=== PATIENT | female | born 1975 | race Caucasian/White ===

== ENCOUNTER 2022-07-11 17:10 | Emergency (ER) | payer BC ==
[~2022-07-11] VITALS: Ht 165.1 cm; Wt 74.8 kg
[~2022-07-11 17:10] MED LIST: FLUNISOLIDE25 ML INH; FLUT.05NI INH; METCAR500 PO; MONT10T PO; OXYACE5T PO; PROG100; SPIR50 PO
[2022-07-11 18:18] LABS: BASOPHILS ABSOLUTE AUTO 0.06 K/mm3 (0.00-0.23); BASOPHILS PERCENT AUTO 1 % (0-2); EOSINOPHILS ABSOLUTE AUTO 0.08 K/mm3 (0.00-0.68); EOSINOPHILS PERCENT AUTO 1 % (0-6); Hematocrit 41.3 % (33.0-51.0); Hemoglobin 13.5 g/dL (11.5-16.0); IMMATURE GRAN ABSOLUTE AUTO 0.04 K/mm3 (0.00-0.10); IMMATURE GRAN PERCENT AUTO 0 % (0-1); LYMPHOCYTES ABSOLUTE AUTO 2.46 K/mm3 (0.84-5.20); LYMPHOCYTES PERCENT AUTO 21 % (21-46); MONOCYTES ABSOLUTE AUTO 0.66 K/mm3 (0.16-1.47); MONOCYTES PERCENT AUTO 6 % (4-13); Mean Corpuscular HGB 28.5 pg (26.0-34.0); Mean Corpuscular HGB Conc 32.7 g/dL (31.5-36.5); Mean Corpuscular Volume 87 fL (80-100); Mean Platelet Volume 10.3 fL (9.1-12.4); NEUTROPHILS ABSOLUTE AUTO 8.51 K/mm3 (1.96-9.15); NEUTROPHILS PERCENT AUTO 72 % (41-73); Platelet Count 325 K/mm3 (150-400); RDW Coefficient Variation 13.6 % (11.7-14.2); RDW Standard Deviation 43.8 fL (35.1-46.3); Red Blood Cell Count 4.74 M/mm3 (3.80-5.20); White Blood Cell Count 11.81 K/mm3 (4.00-11.30)
[2022-07-11 18:25] LABS: Albumin, Blood 3.9 g/dL (3.4-5.0); Albumin/Globulin Ratio 1.2 (0.8-1.8); Bilirubin, Total 0.2 mg/dL (0.1-1.0); Bun/Creatinine Ratio 32.4 (12.0-20.0); Calcium, Blood 9.4 mg/dL (8.5-10.1); Creatinine, Blood 0.56 mg/dL (0.40-1.00); Globulin, Blood 3.2 g/dL (2.2-4.0); Potassium, Blood 3.9 mmol/L (3.5-5.5); Total Protein, Blood 7.1 g/dL (6.4-8.2)
[2022-07-11 19:58] LABS: Source, Urine Clean Catch
[2022-07-11 20:02] LABS: Appearance, Urine Hazy (Clear); Bilirubin, Urine Neg (Neg); Blood, Urine 1+ (Neg); Color, Urine Yellow (P-Yellow); Glucose Qualitative, Urine Neg (Neg); Ketones, Urine 3+ (Neg); Leukocyte Esterase, Urine Neg (Neg); Nitrite, Urine Neg (Neg); Protein, Urine Neg (Neg); Urobilinogen, Urine NORM (Normal)
[2022-07-11 20:12] LABS: Bacteria Few /hpf; Red Blood Cells, Urine 0-2 /hpf (0-2); Squamous Epithelial Cells Many /hpf (Few); White Blood Cells, Urine 0-2 /hpf (0-5)
[2022-07-11] MEDS ORDERED: CARAFATE1 GM/10 M1 PO (21:01)
[2022-07-11] MEDS ORDERED: OMEP20ER PO (21:01)
== END 2022-07-11 21:11 | disposition home or self-care (01) ==
LOC: ER 17:10
PROVIDERS: Emergency Medicine
DX: K27.9 Peptic ulcer, site unspecified, unspecified as acute or chronic, without hemorrhage or perforation (principal); K29.70 Gastritis, unspecified, without bleeding
CPT/HCPCS: 36415; 74177; 80053; 81001; 83690; 85025; A9270; J2405; J3010; Q9967

== ENCOUNTER 2022-07-19 16:14 | Emergency (ER) | payer BC ==
[~2022-07-19] VITALS: Ht 165.1 cm; Wt 72.6 kg
[~2022-07-19 16:14] MED LIST changes: +CARAFATE1 GM/10 M1 PO; +OMEP20ER PO
[2022-07-19 16:33] LABS: BASOPHILS ABSOLUTE AUTO 0.03 K/mm3 (0.00-0.23); BASOPHILS PERCENT AUTO 1 % (0-2); EOSINOPHILS ABSOLUTE AUTO 0.03 K/mm3 (0.00-0.68); EOSINOPHILS PERCENT AUTO 1 % (0-6); Hemoglobin 13.9 g/dL (11.5-16.0); IMMATURE GRAN ABSOLUTE AUTO 0.01 K/mm3 (0.00-0.10); IMMATURE GRAN PERCENT AUTO 0 % (0-1); LYMPHOCYTES ABSOLUTE AUTO 1.78 K/mm3 (0.84-5.20); LYMPHOCYTES PERCENT AUTO 30 % (21-46); MONOCYTES ABSOLUTE AUTO 0.48 K/mm3 (0.16-1.47); MONOCYTES PERCENT AUTO 8 % (4-13); Mean Corpuscular HGB 28.8 pg (26.0-34.0); Mean Corpuscular HGB Conc 33.9 g/dL (31.5-36.5); Mean Corpuscular Volume 85 fL (80-100); Mean Platelet Volume 9.7 fL (9.1-12.4); NEUTROPHILS ABSOLUTE AUTO 3.56 K/mm3 (1.96-9.15); NEUTROPHILS PERCENT AUTO 61 % (41-73); Platelet Count 321 K/mm3 (150-400); RDW Coefficient Variation 13.2 % (11.7-14.2); RDW Standard Deviation 41.5 fL (35.1-46.3); Red Blood Cell Count 4.82 M/mm3 (3.80-5.20); White Blood Cell Count 5.89 K/mm3 (4.00-11.30)
[2022-07-19 16:50] LABS: Albumin, Blood 3.4 g/dL (3.4-5.0); Albumin/Globulin Ratio 0.9 (0.8-1.8); Bilirubin, Total 0.3 mg/dL (0.1-1.0); Bun/Creatinine Ratio 19.1 (12.0-20.0); Calcium, Blood 8.9 mg/dL (8.5-10.1); Creatinine, Blood 0.63 mg/dL (0.40-1.00); Globulin, Blood 3.7 g/dL (2.2-4.0); Potassium, Blood 3.4 mmol/L (3.5-5.5); Total Protein, Blood 7.1 g/dL (6.4-8.2)
[2022-07-19 19:06] LABS: Influenza A, PCR NEGATIVE (NEGATIVE); Influenza B, PCR NEGATIVE (NEGATIVE); Resp Syncytial Virus, PCR NEGATIVE (NEGATIVE); SARS-Cov-2 (COVID-19) PCR, MMC NEGATIVE (NEGATIVE)
[2022-07-19 19:13] LABS: Source, Urine Clean Catch
[2022-07-19 19:18] LABS: Appearance, Urine Hazy (Clear); Bilirubin, Urine Neg (Neg); Blood, Urine 3+ (Neg); Color, Urine Yellow (P-Yellow); Glucose Qualitative, Urine Neg (Neg); Ketones, Urine 3+ (Neg); Leukocyte Esterase, Urine Neg (Neg); Nitrite, Urine Neg (Neg); Protein, Urine 2+ (Neg); Specific Gravity, Urine 1.015 (1.003-1.022); Urobilinogen, Urine NORM (Normal)
[2022-07-19 19:24] LABS: Calcium Oxalate Crystals Rare /hpf
[2022-07-19 19:25] LABS: Bacteria Few /hpf; Red Blood Cells, Urine 0-2 /hpf (0-2); Squamous Epithelial Cells Many /hpf (Few); White Blood Cells, Urine 0-2 /hpf (0-5)
[2022-07-19] MEDS ORDERED: METR500 PO (20:06)
[2022-07-19] MEDS ORDERED: CIPR500 PO (20:06)
== END 2022-07-19 20:20 | disposition home or self-care (01) ==
LOC: ER 16:14
PROVIDERS: Student in an Organized Health Care Education/Training Program
DX: A09 Infectious gastroenteritis and colitis, unspecified (principal); Z88.6 Allergy status to analgesic agent; Z79.899 Other long term (current) drug therapy; Z87.891 Personal history of nicotine dependence
CPT/HCPCS: 0241U; 71046; 74177; 80053; 81001; 83690; 84484; 85025; 93005; 93010; A9270; J7030; Q9967

== ENCOUNTER → 2023-05-31 | Outpatient (CLI) | payer BC ==
[~2023-05-31] MED LIST changes: +CIPR500 PO; +METR500 PO
[2023-06-06 11:12] LABS: HPV 16 Negative (Negative); HPV 18 Negative (Negative); HPV OTHER HR TYPES Negative (Negative)
== END ==
LOC: LAB 10:55 → LAB SHORT 10:55
PROVIDERS: Family Medicine
DX: Z12.4 Encounter for screening for malignant neoplasm of cervix (principal)
CPT/HCPCS: 87624; G0145

== ENCOUNTER 2024-10-12 04:01 | Inpatient (IN) | payer BC ==
[~2024-10-12] VITALS: Ht 165.1 cm; Wt 74.4 kg
[~2024-10-12 04:01] MED LIST changes: +Cyclobenzaprine5 MG; +Cyclobenzaprine5 MG PO; +HYDROXYZINE PAM25 MG; -PROG100; +PROG100 PO
[2024-10-12] MEDS ORDERED: Lactated Ringer's 1,000 ML IV ONE ×2 (04:30→04:35)
[2024-10-12] MEDS ORDERED: HYDROmorphone HCl/Pf 1MG SYR IV ONE ×3 (04:30→11:25)
[2024-10-12] MEDS ORDERED: Ondansetron HCl 2 MG / ML 2ML Vial IV ONE (04:30)
[2024-10-12 04:32] LABS: BASOPHILS ABSOLUTE AUTO 0.09 K/mm3 (0.00-0.23); BASOPHILS PERCENT AUTO 0 % (0-2); EOSINOPHILS ABSOLUTE AUTO 0.04 K/mm3 (0.00-0.68); EOSINOPHILS PERCENT AUTO 0 % (0-6); Hematocrit 41.5 % (33.0-51.0); Hemoglobin 13.6 g/dL (11.5-16.0); IMMATURE GRAN ABSOLUTE AUTO 0.32 K/mm3 (0.00-0.10); IMMATURE GRAN PERCENT AUTO 1 % (0-1); LYMPHOCYTES ABSOLUTE AUTO 0.86 K/mm3 (0.84-5.20); LYMPHOCYTES PERCENT AUTO 3 % (21-46); MONOCYTES ABSOLUTE AUTO 1.44 K/mm3 (0.16-1.47); MONOCYTES PERCENT AUTO 5 % (4-13); Mean Corpuscular HGB 28.7 pg (26.0-34.0); Mean Corpuscular HGB Conc 32.8 g/dL (31.5-36.5); Mean Corpuscular Volume 88 fL (80-100); Mean Platelet Volume 9.7 fL (9.1-12.4); NEUTROPHILS ABSOLUTE AUTO 28.71 K/mm3 (1.96-9.15); NEUTROPHILS PERCENT AUTO 91 % (41-73); Platelet Count 370 K/mm3 (150-400); RDW Coefficient Variation 13.9 % (11.7-14.2); RDW Standard Deviation 44.6 fL (35.1-46.3); Red Blood Cell Count 4.74 M/mm3 (3.80-5.20); White Blood Cell Count 31.46 K/mm3 (4.00-11.30)
[2024-10-12 05:02] LABS: Albumin, Blood 3.6 g/dL (3.4-5.0); Albumin/Globulin Ratio 0.9 (0.8-1.8); Bilirubin, Total 0.7 mg/dL (0.1-1.0); Bun/Creatinine Ratio 16.2 (12.0-20.0); Creatinine, Blood 0.68 mg/dL (0.40-1.00); Globulin, Blood 3.8 g/dL (2.2-4.0); Potassium, Blood 3.6 mmol/L (3.5-5.5); Total Protein, Blood 7.4 g/dL (6.4-8.2)
[2024-10-12] MEDS ORDERED: NS 1,000 ML IV SCH ×2 (05:35→10:10)
[2024-10-12 05:50] LABS: Source, Urine Straight Cath
[2024-10-12 05:52] LABS: Bilirubin, Urine Neg (Neg); Blood, Urine 4+ (Neg); Glucose Qualitative, Urine Neg (Neg); Ketones, Urine Neg (Neg); Leukocyte Esterase, Urine Neg (Neg); Nitrite, Urine Neg (Neg); Protein, Urine 2+ (Neg); Specific Gravity, Urine 1.005 (1.003-1.022); Urobilinogen, Urine NORM (Normal)
[2024-10-12 05:57] LABS: Color, Urine Pale Yellow (P-Yellow)
[2024-10-12 05:58] LABS: Appearance, Urine Clear (Clear)
[2024-10-12 05:59] LABS: Bacteria Few /hpf; Squamous Epithelial Cells Rare /hpf (Few); White Blood Cells, Urine 0-2 /hpf (0-5)
[2024-10-12] MEDS ORDERED: CefTRIAXone Sodium 1,000 MG in NS 100 ML IV ONE (07:00)
[2024-10-12] MEDS ORDERED: Azithromycin 500 MG in NS 250 ML IV ONE (07:00)
[2024-10-12] MEDS ORDERED: OMEP20ER PO (10:07)
[2024-10-12] MEDS ORDERED: Ondansetron 4 MG TAB PO PRN (10:10)
[2024-10-12] MEDS ORDERED: FLU VACC TS2024-25(6MOS UP)/PF 45 MCG/0.5 ML SYRINGE IM SCH (10:15)
[2024-10-12] MEDS ORDERED: Morphine Sulfate 4 MG/1 ML Injection IV ONE (10:45)
[2024-10-12] MEDS ORDERED: OxyCODONE HCL 5 MG TAB PO PRN (11:55)
[2024-10-12] MEDS ORDERED: Piperacillin/Tazobactam Sod 4.5 GM in NS 100 ML IV SCH (12:00)
[2024-10-12 13:54] VITALS: BP 120/88
[2024-10-12] MEDS ORDERED: Morphine Sulfate 4 MG/1 ML Injection IV PRN (15:50)
[2024-10-12] MEDS ORDERED: Ondansetron HCl 2 MG / ML 2ML Vial ONE (17:00)
[2024-10-12] MEDS ORDERED: Ondansetron HCl 2 MG / ML 2ML Vial IV PRN (17:05)
[2024-10-12 19:08] VITALS: BP 106/89
--- NOTE | 2024-10-12 19:11 | NUR ---
REPORT RECEIVED VERIFIED ADMISSION DATA BASE DONE. PT PAIN TO LEFT ABD AND BACK COVERED IN ER PRN. NEW IV STARTED TO RIGHT FA, FAMILY AT BEDSIDE TO ASSIST WITH ADMISSION. DR HINKLE INTO SEE PT , CT WITH ORAL CONTRAST ORDERED AND MSO4 FOR PAIN. PT COVERED FOR PAIN AND IS CURRENTLY DRINKING CONTRAST./ [address]
[2024-10-12] MEDS ORDERED: Cyclobenzaprine HCl 10 MG Tab PO SCH (21:00)
[2024-10-12] MEDS ORDERED: Lactobacil 2-S.Thermo-Bifido 1 1 Cap PO SCH (21:00)
[2024-10-12 23:03] VITALS: BP 119/84
[2024-10-13 03:05] VITALS: BP 101/78
--- NOTE | 2024-10-13 04:22 | NUR ---
SHIFT SUMMARY PATIENT IS ALERT AND ORIENTED. PATIENT HAS HAD NO ACUTE EVENTS THIS SHIFT. VITAL SIGNS REVIEWED. PATIENT HAS COMPLAINED OF ABD PAIN THIS SHIFT AND MEDICATED PER EMAR. PATIENT HAS HAD NO COMPLAINTS OF SOB, NAUSEA OR VOMITTING THIS SHIFT. PATIENT HAS BEEN IND THIS SHIFT WITH NO INCIDENTS. BED IN LOCKED AND LOWEST POSITION. CALL LIGHT IN PLACE.
[2024-10-13] MEDS ORDERED: Omeprazole 20 MG CapCR PO SCH (06:00)
[2024-10-13 06:26] LABS: BASOPHILS ABSOLUTE AUTO 0.07 K/mm3 (0.00-0.23); BASOPHILS PERCENT AUTO 0 % (0-2); EOSINOPHILS ABSOLUTE AUTO 0.27 K/mm3 (0.00-0.68); EOSINOPHILS PERCENT AUTO 1 % (0-6); Hematocrit 35.7 % (33.0-51.0); IMMATURE GRAN ABSOLUTE AUTO 0.34 K/mm3 (0.00-0.10); IMMATURE GRAN PERCENT AUTO 1 % (0-1); LYMPHOCYTES ABSOLUTE AUTO 0.63 K/mm3 (0.84-5.20); LYMPHOCYTES PERCENT AUTO 2 % (21-46); MONOCYTES ABSOLUTE AUTO 1.21 K/mm3 (0.16-1.47); MONOCYTES PERCENT AUTO 5 % (4-13); Mean Corpuscular HGB 28.4 pg (26.0-34.0); Mean Corpuscular HGB Conc 30.8 g/dL (31.5-36.5); Mean Corpuscular Volume 92 fL (80-100); Mean Platelet Volume 10.2 fL (9.1-12.4); NEUTROPHILS ABSOLUTE AUTO 24.12 K/mm3 (1.96-9.15); NEUTROPHILS PERCENT AUTO 91 % (41-73); Platelet Count 283 K/mm3 (150-400); RDW Coefficient Variation 14.5 % (11.7-14.2); RDW Standard Deviation 48.9 fL (35.1-46.3); Red Blood Cell Count 3.87 M/mm3 (3.80-5.20); White Blood Cell Count 26.64 K/mm3 (4.00-11.30)
[2024-10-13 07:04] VITALS: BP 116/88
[2024-10-13 07:07] LABS: Albumin, Blood 2.7 g/dL (3.4-5.0); Albumin/Globulin Ratio 0.8 (0.8-1.8); Bilirubin, Total 0.5 mg/dL (0.1-1.0); Bun/Creatinine Ratio 27.8 (12.0-20.0); Calcium, Blood 8.5 mg/dL (8.5-10.1); Creatinine, Blood 0.43 mg/dL (0.40-1.00); Globulin, Blood 3.5 g/dL (2.2-4.0); Potassium, Blood 3.5 mmol/L (3.5-5.5); Total Protein, Blood 6.2 g/dL (6.4-8.2)
[2024-10-13 07:40] LABS: BAND PERCENT MAN 2 % (0-8); BASOPHILS PERCENT MAN 0 % (0-2); EOSINOPHILS PERCENT MAN 0 % (0-6); LYMPHOCYTES ABSOLUTE MAN 0.53 K/mm3 (0.84-5.20); LYMPHOCYTES PERCENT MAN 2 % (21-46); MONOCYTES ABSOLUTE MAN 1.33 K/mm3 (0.16-1.47); MONOCYTES PERCENT MAN 5 % (4-13); NEUTROPHILS ABSOLUTE MAN 24.77 K/mm3 (1.96-9.15); SEG NEUTROPHILS PERCENT MAN 91 % (41-73); TOTAL CELLS COUNTED 100
[2024-10-13] MEDS ORDERED: Heparin Sodium 5000 Units/ML 1ML MDV SC SCH (09:00)
[2024-10-13] MEDS ORDERED: NS 1,000 ML IV ONE (11:20)
[2024-10-13 12:10] VITALS: BP 134/85
[2024-10-13] MEDS ORDERED: HYDROmorphone HCl/Pf 1MG SYR IV PRN (13:05)
--- NOTE | 2024-10-13 15:43 | NUR ---
NOTE: SPOKE WITH TELE MULTIPLE TIMES, CHECKING ON PT'S HR. HR HAS SUSTAINED OVER 120 TO 130. MEDICATED PER THE EMAR. PROVIDER AWARE AND UPDATED EACH TIME.
[2024-10-13 16:16] VITALS: BP 130/85
--- NOTE | 2024-10-13 16:31 | NUR ---
NOTE: NOTIFIED PROVIDER OF PT'S HR SUSTAINING 120'S. PT ALSO HAD TO BE PUT ON OXYGEN DUE TO LOW SATURATION. ORDER OBTAINED FOR CONTINUOUS PULSE OX.
--- NOTE | 2024-10-13 17:53 | NUR ---
SHIFT SUMMARY PT AOX4, INDEPENDENT IN THE ROOM. CALLS AND MAKES HER NEEDS KNOWN. NO EVENTS PER TELE BUT SEE OTHER NOTES ABOUT UPDATES SOUGHT OUT FROM TELE. PT REPOSITIONS SELF IN BED. MEDICATED FOR PAIN PER THE EMAR. PT STATES RELIEF THIS EVENING. PRUNE JUICE PROVIDED FOR A BM. UPDATES GIVEN TO HER . PAIN MANAGEMENT AND IV ABX REMAINS THE GOAL FOR NOW. CALL LIGHT WITHIN REACH, BED LOCKED AND IN THE LOWEST POSITION. WILL REPORT TO ONCOMING NURSE.
[2024-10-13 20:16] VITALS: BP 118/89
[2024-10-13 23:47] VITALS: BP 114/76
[2024-10-14 04:01] VITALS: BP 115/78
--- NOTE | 2024-10-14 05:21 | NUR ---
SHIFT SUMMARY 49 YR F ADMITTED ON 10/12/24. FULL CODE. NO ACUTE CHANGES THIS SHIFT. PT MEDICATED FOR PAIN WITH GOOD RESULTS. SHE STATES SHE WAS ABLE TO SLEEP FOR A FEW HOURS. NO ADVERSE EVENTS REPORTED FROM HAND MOLDER AND CASTER. PT IS A&O X 4 AND INDEPENDANT IN THE ROOM WILL CONTINUE TO MONITOR. BED IN LOW POSITION AND CALL LIGHT IN REACH.
[2024-10-14] MEDS ORDERED: Pantoprazole Sodium 40 MG Injection IV SCH (06:00)
[2024-10-14] MEDS ORDERED: NS 100 ML IV ONE (06:02)
[2024-10-14 08:47] LABS: BASOPHILS ABSOLUTE AUTO 0.06 K/mm3 (0.00-0.23); BASOPHILS PERCENT AUTO 0 % (0-2); EOSINOPHILS ABSOLUTE AUTO 0.28 K/mm3 (0.00-0.68); EOSINOPHILS PERCENT AUTO 2 % (0-6); Hematocrit 31.9 % (33.0-51.0); Hemoglobin 10.2 g/dL (11.5-16.0); IMMATURE GRAN ABSOLUTE AUTO 0.11 K/mm3 (0.00-0.10); IMMATURE GRAN PERCENT AUTO 1 % (0-1); LYMPHOCYTES ABSOLUTE AUTO 0.85 K/mm3 (0.84-5.20); LYMPHOCYTES PERCENT AUTO 5 % (21-46); MONOCYTES PERCENT AUTO 6 % (4-13); Mean Corpuscular HGB 28.7 pg (26.0-34.0); Mean Corpuscular Volume 90 fL (80-100); Mean Platelet Volume 9.9 fL (9.1-12.4); NEUTROPHILS ABSOLUTE AUTO 15.01 K/mm3 (1.96-9.15); NEUTROPHILS PERCENT AUTO 87 % (41-73); Platelet Count 322 K/mm3 (150-400); RDW Coefficient Variation 14.3 % (11.7-14.2); RDW Standard Deviation 46.5 fL (35.1-46.3); Red Blood Cell Count 3.55 M/mm3 (3.80-5.20); White Blood Cell Count 17.31 K/mm3 (4.00-11.30)
[2024-10-14 08:54] VITALS: BP 127/85
[2024-10-14 09:20] LABS: Bun/Creatinine Ratio 20.7 (12.0-20.0); Calcium, Blood 8.4 mg/dL (8.5-10.1); Creatinine, Blood 0.43 mg/dL (0.40-1.00); Potassium, Blood 3.1 mmol/L (3.5-5.5)
[2024-10-14 16:57] VITALS: BP 115/88
--- NOTE | 2024-10-14 18:14 | NUR ---
NO ACUTE CHANGES, MEDICATED FOR ABD AND HEADACHE PAIN, INDEPEDANT IN ROOM, CALL LIGHT WITH IN REACH
[2024-10-14 20:00] VITALS: BP 121/85
[2024-10-15 00:11] VITALS: BP 136/93
--- NOTE | 2024-10-15 04:18 | NUR ---
SHIFT SUMMARY. NO ACUTE CHANGES THIS SHIFT. PT STATES SHE IS FEELING MUCH BETTER AND PAIN IS GETTING EASIER TO CONTROL. OF 429, SHE HAS ONLY BEEN MEDICATED FOR PAIN ONCE THIS SHIFT. SHE APPEARS TO HAVE RESTED COMFORTABLY FOR MOST OF THIS SHIFT. WILL CONTINUE TO MONITOR. BED IN LOW POSITION AND CALL LIGHT IN REACH.
[2024-10-15 04:26] VITALS: BP 104/81
[2024-10-15 07:36] VITALS: BP 118/85
[2024-10-15 08:30] LABS: BASOPHILS ABSOLUTE AUTO 0.05 K/mm3 (0.00-0.23); BASOPHILS PERCENT AUTO 0 % (0-2); EOSINOPHILS PERCENT AUTO 2 % (0-6); Hematocrit 30.5 % (33.0-51.0); Hemoglobin 9.9 g/dL (11.5-16.0); IMMATURE GRAN ABSOLUTE AUTO 0.07 K/mm3 (0.00-0.10); IMMATURE GRAN PERCENT AUTO 1 % (0-1); LYMPHOCYTES PERCENT AUTO 10 % (21-46); MONOCYTES PERCENT AUTO 8 % (4-13); Mean Corpuscular HGB 28.6 pg (26.0-34.0); Mean Corpuscular HGB Conc 32.5 g/dL (31.5-36.5); Mean Corpuscular Volume 88 fL (80-100); Mean Platelet Volume 9.2 fL (9.1-12.4); NEUTROPHILS ABSOLUTE AUTO 8.84 K/mm3 (1.96-9.15); NEUTROPHILS PERCENT AUTO 79 % (41-73); Platelet Count 324 K/mm3 (150-400); RDW Coefficient Variation 14.2 % (11.7-14.2); RDW Standard Deviation 45.9 fL (35.1-46.3); Red Blood Cell Count 3.46 M/mm3 (3.80-5.20); White Blood Cell Count 11.16 K/mm3 (4.00-11.30)
[2024-10-15 08:57] LABS: Bun/Creatinine Ratio 16.5 (12.0-20.0); Calcium, Blood 8.4 mg/dL (8.5-10.1); Creatinine, Blood 0.42 mg/dL (0.40-1.00); Magnesium, Blood 1.9 mg/dL (1.6-2.4)
[2024-10-15] MEDS ORDERED: Potassium Chloride 20 MEQ/15 ML UDC PO ONE (09:10)
[2024-10-15] MEDS ORDERED: Mag Sulfate 1 GM/D5% 100ML 100 ML IV STA (09:12)
[2024-10-15 14:56] LABS: Bun/Creatinine Ratio 17.6 (12.0-20.0); Calcium, Blood 9.1 mg/dL (8.5-10.1); Creatinine, Blood 0.57 mg/dL (0.40-1.00); Potassium, Blood 3.2 mmol/L (3.5-5.5)
[2024-10-15 15:29] VITALS: BP 129/91
--- NOTE | 2024-10-15 16:51 | NUR ---
NO ACUTE CHANGES, WBC IMPROVED, TELE DISCONTINUED, MEDICATED FOR PAIN, AMBULATED REGULARLY IN ROOM, ALERT AND ORIENTED X4, SHOWERED TODAY, CALL LIGHT WITH IN REACH, WILL RLEAY TO PM RN
[2024-10-15] MEDS ORDERED: Potassium Chloride 20 MEQ in NS 90 ML IV SCH (16:55)
[2024-10-15 19:55] VITALS: BP 130/93
[2024-10-16 00:18] VITALS: BP 124/90
[2024-10-16 04:36] VITALS: BP 119/85
--- NOTE | 2024-10-16 04:43 | NUR ---
Shift Summary Pt started on IV potassium at the start of shift. Called hospitalist who ordered tele d/t IV potassium risks. No events called from tele monitor. Pt was running SR to ST which has been normal since she has been here. PT c/o L flank pain, medicated per EMAR. She slept comfortably t/o most of the night. She is AOX4, independent in the room.
[2024-10-16 07:57] VITALS: BP 117/82
[2024-10-16 08:33] LABS: BASOPHILS ABSOLUTE AUTO 0.05 K/mm3 (0.00-0.23); BASOPHILS PERCENT AUTO 1 % (0-2); EOSINOPHILS ABSOLUTE AUTO 0.22 K/mm3 (0.00-0.68); EOSINOPHILS PERCENT AUTO 2 % (0-6); Hematocrit 29.5 % (33.0-51.0); Hemoglobin 9.6 g/dL (11.5-16.0); IMMATURE GRAN ABSOLUTE AUTO 0.09 K/mm3 (0.00-0.10); IMMATURE GRAN PERCENT AUTO 1 % (0-1); LYMPHOCYTES ABSOLUTE AUTO 1.23 K/mm3 (0.84-5.20); LYMPHOCYTES PERCENT AUTO 13 % (21-46); MONOCYTES PERCENT AUTO 8 % (4-13); Mean Corpuscular HGB 28.7 pg (26.0-34.0); Mean Corpuscular HGB Conc 32.5 g/dL (31.5-36.5); Mean Corpuscular Volume 88 fL (80-100); Mean Platelet Volume 8.9 fL (9.1-12.4); NEUTROPHILS ABSOLUTE AUTO 7.32 K/mm3 (1.96-9.15); NEUTROPHILS PERCENT AUTO 75 % (41-73); Platelet Count 327 K/mm3 (150-400); RDW Coefficient Variation 14.4 % (11.7-14.2); RDW Standard Deviation 46.1 fL (35.1-46.3); Red Blood Cell Count 3.35 M/mm3 (3.80-5.20); White Blood Cell Count 9.71 K/mm3 (4.00-11.30)
[2024-10-16 08:59] LABS: Bun/Creatinine Ratio 20.4 (12.0-20.0); Calcium, Blood 8.7 mg/dL (8.5-10.1); Creatinine, Blood 0.49 mg/dL (0.40-1.00); Potassium, Blood 3.9 mmol/L (3.5-5.5)
--- NOTE | 2024-10-16 10:12 | NUR ---
OUT OF ROOM NOTE: PATIENT LEFT THE ROOM TRANSPORTED VIA W/CHAIR AT 1014 TO [address] FOR REPEAT CT TO L ABDOMEN PER ORDER.
[2024-10-16] MEDS ORDERED: AMOCLA875 PO (15:38)
[2024-10-16] MEDS ORDERED: OXYC5 PO (15:38)
[2024-10-16] MEDS ORDERED: OMEP20ER PO (15:39)
--- NOTE | 2024-10-16 15:53 | NUR ---
SHIFT/DISCHARGE SUMMARY: PATIENT A/OX4, CALM, PLEASANT AND COOPERATIVE c CARE. PATIENT DENIES CP/PRESSURE, SOB, N/V AND DIZZINESS. PATIENT HAS HAD NO EVENTS ON TELE, SR HR IN THE HIGH 80'S BPM. PATIENT HAD REPEAT CT TO L ABDOMEN c RESULT. DR. HERNANDEZ SPOKE TO PATIENT c CT RESULT. PATIENT VERBALIZED UNDERSTANDING AND NO FURTHER QUESTIONS. PATIENT RECEIVED IV ABX/SCHEDULED MEDS PER EMAR. PATIENT MEDICATED FOR PAIN TO L ABDOMEN c ADEQUATE RESULT. PATIENT HAS MOD APPETITE, CONTINENT OF BLADDER, AMBULATES TO BATHROOM INDEPENDENTLY T/O SHIFT. PATIENT HAS NO COMPLAINT OR DENIES NEW CONCERNED THIS SHIFT. PIV DC'D BY MADDY. PATIENT DISCHARGE HOME. DISCHARGE INSTRUCTIONS PACKET GIVEN TO PATIENT. PATIENT EDUCATED c ADMITTING DX'S OF AUBREY CAVAZOS, NEW RX AND TO F/U c PCP. PATIENT VERBALIZED UNDERSTANDING AND NO FURTHER QUESTIONS. PATIENT RX WAS FAXED TO [id number]. OXYCODONE HARDSCRIPT GIVEN TO PATIENT. ALL PERSONAL BELONGINGS WERE SENT HOME c THE PATIENT. PATIENT DECLINED W/CHAIR TRANSPORT, BUT AGREED TO BE ACCOMPANIED BY [facility]. PATIENT LEFT THE ROOM AT 1600 ACCOMPANIED BY ELAINE LÓPEZ TO PATIENT ENTRANCE.
== END 2024-10-16 15:58 | disposition home or self-care (01) | DRG 871 ==
LOC: ER 04:01 → MEDS 10:08
PROVIDERS: Emergency Medicine; ADMIT Student in an Organized Health Care Education/Training Program
DX: A41.9 Sepsis, unspecified organism (principal); K63.1 Perforation of intestine (nontraumatic); K65.1 Peritoneal abscess; J90 Pleural effusion, not elsewhere classified; K21.9 Gastro-esophageal reflux disease without esophagitis; I45.10 Unspecified right bundle-branch block; M62.838 Other muscle spasm; E87.6 Hypokalemia; Z98.84 Bariatric surgery status; Z87.891 Personal history of nicotine dependence; Z79.899 Other long term (current) drug therapy; Z98.890 Other specified postprocedural states; Z87.19 Personal history of other diseases of the digestive system; Z88.8 Allergy status to other drugs, medicaments and biological substances; Z98.1 Arthrodesis status
CPT/HCPCS: 36415; 74177; 80048; 80053; 81001; 82947; 83605; 83690; 83735; 84484; 85025; 87040; 87086; 93005; 93010; 96365; 96367; 96375; 96376; 99285-25; A9270; J0456; J0696; J1171; J1644; J2270; J2405; J2470; J2543; J3475; J3480; J7030; J7050; J7120; Q9967